=== PATIENT | male | born 1990 | race Caucasian/White ===

== ENCOUNTER 2024-12-14 19:40 | Emergency (ER) | payer BC, SELFPAY ==
[2024-12-14 19:46] VITALS: BP 146/79; PULSE 98; RESP 18; TEMP 36.6; O2SAT 100; BMI 24.4
[2024-12-14 19:49] VITALS: BP 146/79; PULSE 86; RESP 18; TEMP 36.6; O2SAT 100
--- NOTE | 2024-12-14 19:52 | EKG12_ITS ---
Test Reason : DYSRHYTHMIA Blood Pressure : */* mmHG Vent. Rate : 74 BPM Atrial Rate : 74 BPM P-R Int : 114 ms QRS Dur : 112 ms QT Int : 374 ms P-R-T Axes : 24 47 20 degrees QTcB Int : 415 ms Sinus rhythm with marked sinus arrhythmia Nonspecific ST abnormality Abnormal ECG Confirmed by ZAYRA MURILLO, LENNIE ([id number]), video tape editor RADHA CHO ([id number]) on 12/18/2024 7:29:10 AM Referred By: BB Confirmed By: LENNIE IVERSON MD
--- NOTE | 2024-12-14 20:05 | EX.ED.DYSGE1 ---
HPI <LILIYA Corral - Last Filed: 12/14/24 21:36> History of Present Illness Chief Complaint: Syncope Narrative Narrative: 34-year-old male with no past medical history went to work at 2 PM and states he was not feeling well. He has to sit and stand throughout his day and he started to feel very lightheaded and hot and flushed and both hands and feet started tingling. He thought if he stood up again he might blackout. He was sitting and his vision briefly went black but he did not pass out. He went to the bathroom and laid on the floor and a coworker came in and and called EMS. Patient denies chest pain, shortness of breath, or nausea or vomiting. He states over the last week he has had congestion and a cough. He does not take any medications. PFS <LILIYA Corral - Last Filed: 12/14/24 21:36> [facility] Medical History (Updated 12/14/24 @ 21:31 by LILIYA Corral) Broken collarbone Broken arm Home Medications ?Medication ?Instructions ?Recorded ?Last Taken ?Type NK 12/14/24 Unknown History Allergy/AdvReac Type Severity Reaction Status Date / Time No Known Allergies Allergy Verified 12/14/24 19:45 Family History no significant family his Social History Smoking Status: Current every day smoker tobacco type: e-cigarettes ROS <LILIYA Corral - Last Filed: 12/14/24 21:36> ROS ED ROS Narrative Constitutional: Negative for fever, chills, malaise. CVS: Negative for palpitations, chest pain. Respiratory: Positive for cough. Negative for shortness of breath. GI: Negative for abdominal pain, nausea, vomiting, melena, hematochezia. EXAM <LILIYA Corral - Last Filed: 12/14/24 21:36> Physical Exam Narrative Exam Narrative: CONST: Patient sitting in no acute distress. EYES: Normal inspection. NECK: Normal inspection. RESP: No respiratory distress, CTAB. CVS: Regular rate and rhythm, no murmur, no gallop. ABD: Soft and nontender, no guarding or rebound, nondistended. SKIN: Color normal, no rash, warm, dry, intact. EXTREMITIES: Normal appearance, no pedal edema. NEURO: Alert and answering questions appropriately. PSYCH: Normal affect. Const Vital Signs: 12/14/24 19:46 12/14/24 19:46 12/14/24 19:49 Temperature 98 F 98 F Temperature Source Oral Oral Pulse Rate 98 86 Pulse Rate [Lying] Pulse Rate [Sitting (for 1 minute prior to obtaining)] Pulse Rate [Standing (for 1 minute prior to obtaining)] Respiratory Rate 18 18 Respiratory Effort Normal Respiratory Pattern Normal Blood Pressure 146/79 H 146/79 H Blood Pressure [Lying] Blood Pressure [Sitting (for 1 minute prior to obtaining)] Blood Pressure [Standing (for 1 minute prior to obtaining)] Blood Pressure Mean 101 101 Blood Pressure Mean [Lying] Blood Pressure Mean [Sitting (for 1 minute prior to obtaining)] Blood Pressure Mean [Standing (for 1 minute prior to obtaining)] Pulse Ox 100 100 Oxygen Delivery Method Room Air Room Air 12/14/24 20:08 12/14/24 21:36 Temperature 98 F Temperature Source Pulse Rate 76 Pulse Rate [Lying] 89 Pulse Rate [Sitting (for 1 minute prior to obtaining)] 90 Pulse Rate [Standing (for 1 minute prior to obtaining)] 97 Respiratory Rate 18 Respiratory Effort Respiratory Pattern Blood Pressure 122/82 H Blood Pressure [Lying] 139/99 H Blood Pressure [Sitting (for 1 minute prior to obtaining)] 138/90 H Blood Pressure [Standing (for 1 minute prior to obtaining)] 133/95 H Blood Pressure Mean 95 Blood Pressure Mean [Lying] 112 Blood Pressure Mean [Sitting (for 1 minute prior to obtaining)] 106 Blood Pressure Mean [Standing (for 1 minute prior to obtaining)] 107 Pulse Ox 97 Oxygen Delivery Method <Dr. Judy Carballo MD - Last Filed: 12/14/24 23:32> Physical Exam Const Vital Signs: 12/14/24 19:46 12/14/24 19:46 12/14/24 19:49 Temperature 98 F 98 F Temperature Source Oral Oral Pulse Rate 98 86 Pulse Rate [Lying] Pulse Rate [Sitting (for 1 minute prior to obtaining)] Pulse Rate [Standing (for 1 minute prior to obtaining)] Respiratory Rate 18 18 Respiratory Effort Normal Respiratory Pattern Normal Blood Pressure 146/79 H 146/79 H Blood Pressure [Lying] Blood Pressure [Sitting (for 1 minute prior to obtaining)] Blood Pressure [Standing (for 1 minute prior to obtaining)] Blood Pressure Mean 101 101 Blood Pressure Mean [Lying] Blood Pressure Mean [Sitting (for 1 minute prior to obtaining)] Blood Pressure Mean [Standing (for 1 minute prior to obtaining)] Pulse Ox 100 100 Oxygen Delivery Method Room Air Room Air 12/14/24 20:08 12/14/24 21:36 Temperature 98 F Temperature Source Pulse Rate 76 Pulse Rate [Lying] 89 Pulse Rate [Sitting (for 1 minute prior to obtaining)] 90 Pulse Rate [Standing (for 1 minute prior to obtaining)] 97 Respiratory Rate 18 Respiratory Effort Respiratory Pattern Blood Pressure 122/82 H Blood Pressure [Lying] 139/99 H Blood Pressure [Sitting (for 1 minute prior to obtaining)] 138/90 H Blood Pressure [Standing (for 1 minute prior to obtaining)] 133/95 H Blood Pressure Mean 95 Blood Pressure Mean [Lying] 112 Blood Pressure Mean [Sitting (for 1 minute prior to obtaining)] 106 Blood Pressure Mean [Standing (for 1 minute prior to obtaining)] 107 Pulse Ox 97 Oxygen Delivery Method [facility] <LILIYA Corral - Last Filed: 12/14/24 21:36> [facility] Narrative Medical decision making narrative: Differential includes but not limited to orthostatic hypotension, electrolyte derangement, arrhythmia, anxiety 34-year-old male was at work and had presyncopal symptoms, felt hot, and had tingling in his hands and feet. He appears slightly anxious and pale but nontoxic. Vital stable. Overall exam exam is benign. CBC is unremarkable. BMP shows normal electrolytes and renal function, CO2 16.9, gap 21, glucose 132. EKG is sinus rhythm without ischemic changes and troponin is less than 6. Since he has not chest pain or shortness of breath he does not require serial enzymes. After further discussion with the patient he states has been very stressed planning a vacation, getting engaged, and is working 3 jobs. I think this may have been an anxiety reaction with hyperventilation causing the low CO2 and bilateral paresthesias which have now resolved. After resting in the department patient is feeling improved. I recommended PCP follow-up and discussed return precautions. He was discharged in stable condition. History & Record Review Discussion w/independent historian: Patient Lab Data Attestation: I reviewed the patient's lab results. Labs: Laboratory Results - last 24 hr 12/14/24 12/14/24 19:50 21:14 WBC 5.9 RBC 4.58 L Hgb 14.1 Hct 39.7 L MCV 86.7 MCH 30.8 MCHC 35.5 RDW Std Deviation 38.9 RDW Coeff of [place] 12.2 Plt Count 318 MPV 9.9 Immature Gran % (Auto) 0.200 Neut % (Auto) 50.6 Lymph % (Auto) 39.1 [place] % (Auto) 8.0 Eos % (Auto) 1.2 Baso % (Auto) 0.9 Absolute Neuts (auto) 3.0 Absolute Lymphs (auto) 2.30 Nucleated RBC % 0 Sodium 141 Potassium 3.3 Chloride 104 Carbon Dioxide 16.9 L Anion Gap 21 H BUN 8 Creatinine 0.81 Estim Creat Clear Calc 141.04 Est GFR (MDRD) Non-Af 119 BUN/Creatinine Ratio 9.6 L Glucose 132 H Calcium 9.3 Troponin T High Sens < 6 Urine Color Straw Urine Clarity Clear Urine pH 8.0 Ur Specific [place] 1.010 Urine Protein Negative Urine Glucose (UA) Normal Urine Ketones Negative Urine Occult Blood Negative Urine Nitrite Negative Urine Bilirubin Negative Urine Urobilinogen Normal Ur Leukocyte Esterase Negative Urine RBC 0-5 SEEN Urine WBC 0-5 SEEN Ur Squamous Epith Cells 0-5 SEEN Urine Bacteria 0 SEEN Urine Mucus 0 SEEN EKG Initial EKG: Attestation: I personally reviewed and interpreted this EKG as follows: Interpretation: No Acute Injury Pattern and Sinus Arrythmia Comments: Sinus rhythm with sinus arrhythmia at [address] changes, no STEMI <Dr. Judy Carballo MD - Last Filed: 12/14/24 23:32> [facility] MDM Narrative Medical decision making narrative: Differential includes but not limited to orthostatic hypotension, electrolyte derangement, arrhythmia, anxiety 34-year-old male was at work and had presyncopal symptoms, felt hot, and had tingling in his hands and feet. He appears slightly anxious and pale but nontoxic. Vital stable. Overall exam exam is benign. CBC is unremarkable. BMP shows normal electrolytes and renal function, CO2 16.9, gap 21, glucose 132. EKG is sinus rhythm without ischemic changes and troponin is less than 6. Since he has not chest pain or shortness of breath he does not require serial enzymes. After further discussion with the patient he states has been very stressed planning a vacation, getting engaged, and is working 3 jobs. I think this may have been an anxiety reaction with hyperventilation causing the low CO2 and bilateral paresthesias which have now resolved. After resting in the department patient is feeling improved. I recommended PCP follow-up and discussed return precautions. He was discharged in stable condition. Patient seen and evaluated with NAKITA. I personally interviewed and examined the patient. I was involved in all aspects of patient's orders, interpretation of results, and treatment. In brief patient is a otherwise healthy 34-year-old male presenting to the emergency department after a presyncopal episode. Patient states he has been very stressed over the past few weeks. Endorses viral-like symptoms over the past few days. Was at work when his hands were tingling he felt lightheaded. He did not lose consciousness. Did not fall. Is feeling back to normal now. CBC is unremarkable here. EKG shows sinus rhythm with sinus arrhythmia. No ischemic changes noted. No evidence of WPW, Brugada or Wellens. BMP with no significant electrolyte abnormalities. There is evidence of possible hyperventilation. Troponin within normal limits. With patient feeling back to baseline and a unremarkable workup here the patient can follow-up with primary care outpatient. Patient discharged from the Emergency Department. I do not feel that the patient's evaluation reveals any acute reason for admission at this time. I instructed them to either follow-up with their primary care physician or promptly return to the Emergency Department for reevaluation should symptoms worsen or new symptoms develop. I explained what symptoms would indicate the need to return to the emergency department. Shared decision making was used. The patient voiced understanding of the treatment plan and is agreeable with it. Clinical impression Presyncope Lightheaded Lab Data Labs: Laboratory Results - last 24 hr 12/14/24 12/14/24 19:50 21:14 WBC 5.9 RBC 4.58 L Hgb 14.1 Hct 39.7 L MCV 86.7 MCH 30.8 MCHC 35.5 RDW Std Deviation 38.9 RDW Coeff of [place]am 12.2 Plt Count 318 MPV 9.9 Immature Gran % (Auto) 0.200 Neut % (Auto) 50.6 Lymph % (Auto) 39.1 [place] % (Auto) 8.0 Eos % (Auto) 1.2 Baso % (Auto) 0.9 Absolute Neuts (auto) 3.0 Absolute Lymphs (auto) 2.30 Nucleated RBC % 0 Sodium 141 Potassium 3.3 Chloride 104 Carbon Dioxide 16.9 L Anion Gap 21 H BUN 8 Creatinine 0.81 Estim Creat Clear Calc 141.04 Est GFR (MDRD) Non-Af 119 BUN/Creatinine Ratio 9.6 L Glucose 132 H Calcium 9.3 Troponin T High Sens < 6 Urine Color Straw Urine Clarity Clear Urine pH 8.0 Ur Specific [place] 1.010 Urine Protein Negative Urine Glucose (UA) Normal Urine Ketones Negative Urine Occult Blood Negative Urine Nitrite Negative Urine Bilirubin Negative Urine Urobilinogen Normal Ur Leukocyte Esterase Negative Urine RBC 0-5 SEEN Urine WBC 0-5 SEEN Ur Squamous Epith Cells 0-5 SEEN Urine Bacteria 0 SEEN Urine Mucus 0 SEEN Discharge Plan Triage Chief Complaint: Syncope ED Midlevel Provider: Merna Llanos ED Provider: Judy Carballo Dx/Rx/DC Orders Clinical Impression: Pre-syncope, Complaint of paresthesia, Anxiety Instructions: Dizziness Fainting Causes Prescriptions: No Action NK Stand Alone Forms: Work / School Excuse Primary Care Provider: Care Physician,No Primary Referrals: Care Physician,No Primary [Primary Care Provider] - Activity Restrictions/Additional Instructions: Your labs show that your carbon dioxide is low. This can happen when you are hyperventilating or anxious and cause tingling in the hands and feet. Should return to normal over time as you are breathing regularly. Rest of your testing is unremarkable. I recommend you follow-up with your primary care doctor or return if symptoms worsen. Print Language: Welsh Disposition Disposition: Home, Self Care Discharge Date/Time: 12/14/24 21:38
[2024-12-14] MEDS: 0.9% Normal Saline (1000mL) 1,000 ML 999 ML IV (20:06)
[2024-12-14 20:08] VITALS: BP 133/95; BP 138/90; BP 139/99; PULSE 89; PULSE 90; PULSE 97
--- NOTE | 2024-12-14 20:10 | RAD_ITS ---
PROCEDURE: CHEST 1 VIEW (PORTABLE) 12/14/2024 REASON FOR EXAM: COUGH TECHNIQUE: Frontal view of the chest. COMPARISON: None. FINDINGS: The lungs are expanded. There is no demonstrated parenchymal abnormality. There is no demonstrated pleural abnormality. Normal heart and pericardium. Normal mediastinum and jane. Normal visualized pulmonary arteries. Normal visualized aortic arch and descending thoracic aorta. Normal visualized thoracic spine. Normal visualized ribs, clavicles, and shoulders. There is no demonstrated abnormality of the visualized soft tissue structures of the upper abdomen. RAD/Chest 1 View (Portable) IMPRESSION: No evidence for acute abnormality. Reading Location[facility]
[2024-12-14 20:13] LABS: Hematocrit 39.7 % (40-54); Hemoglobin 14.1 g/dL (13.0-16.5); Immature Granulocytes Count 0.010 X10^3/uL (0.0-0.0); Mean Corp Hgb Conc 35.5 g/dL (32-36); Mean Corpuscular Volume 86.7 fL (80-94); Mean Platelet Vol. 9.9 fl (6.2-12.0); NRBC Flagged by Analyzer 0 % (0-5); Platelet Count 318 K/mm3 (150-450); RBC Distribution Width CV 12.2 % (11.6-14.6); RBC Distribution Width SD 38.9 fl (35.1-43.9); Red Blood Count 4.58 M/mm3 (4.6-6.2); White Blood Count 5.9 K/mm3 (4.4-11.0)
[2024-12-14 20:18] LABS: Anion Gap 21 (5-15); BUN 8 mg/dL (4-19); BUN/Creat Ratio 9.6 RATIO (10-20); Calcium,Total 9.3 mg/dL (7.6-11.0); Carbon Dioxide 16.9 mmol/L (21.0-32.0); Chloride 104 mmol/L (98-108); Estimated Creatinine Clearance 141.04 ml/min (50-250); Glucose 132 mg/dL (70-99); Potassium 3.3 mmol/L (3.3-5.1)
[2024-12-14 21:21] LABS: Mucous, Urine 0 SEEN /hpf (<or=2+)
[2024-12-14 21:29] LABS: Troponin T High Sensitivity < 6 ng/L (<=22)
[2024-12-14 21:36] VITALS: BP 122/82; PULSE 76; RESP 18; TEMP 36.6; O2SAT 97
[2024-12-14 21:38] LABS: Color, Urine Straw (Yellow); Glucose, Dipstick Normal (Normal); Ketone-Dipstick Negative (Negative); Leukocyte Esterase-Dipstick Negative /ul (Negative); Nitrite-Dipstick Negative (Negative); Occult Blood-Urine Negative /ul (Negative); Protein-Dipstick Negative (Negative); Specific Gravity, Urine 1.010 (1.002-1.030); Urine Bilirubin Dipstick Negative (Negative)
[2024-12-14 23:20] LABS: Red Blood Cells-Urine 0-5 SEEN /hpf (0-5); Squamous Epithelial Cells - UA 0-5 SEEN /hpf (0-5)
== END 2024-12-14 21:38 | disposition home or self-care (01) ==
PROVIDERS: Physician Assistant; Emergency Provider Student in an Organized Health Care Education/Training Program; Visit Provider Student in an Organized Health Care Education/Training Program
DX: R55 Syncope and collapse (principal); F41.9 Anxiety disorder, unspecified; R20.2 Paresthesia of skin; I49.8 Other specified cardiac arrhythmias; R05.9 Cough, unspecified; F17.290 Nicotine dependence, other tobacco product, uncomplicated
CPT/HCPCS: 71045; 80048; 81001; 84484; 85025; 87631; 93005; 96360; 99285